=== PATIENT | male | born 1965 | race Caucasian/White ===

== ENCOUNTER → 2017-10-06 | Day surgery (SDC) | payer OTHER ==
[2017-09-26 09:37] LABS: BASOPHILS % 0.5 % (0.0-1.0); EOSINOPHILS # (AUTO) 0.3 (0.0-0.4); EOSINOPHILS % 3.8 % (0.0-6.0); HEMATOCRIT 40.7 % (38.2-49.6); LYMPHOCYTES % 25.7 % (18.0-39.1); MEAN CORPUSCULAR HEMOGLOBIN 30.9 pg (28-32); MEAN CORPUSCULAR HGB CONC 34.4 g/dL (31-35); MEAN CORPUSCULAR VOLUME 89.8 fL (81-99); MONOCYTES # (AUTO) 0.6 (0.2-0.8); MONOCYTES % 7.3 % (4.4-11.3); NEUTROPHILS # (AUTO) 4.8 (2.1-6.9); NEUTROPHILS % 62.2 % (38.7-80.0); PLATELET COUNT 286 x10e3/uL (140-360); RED BLOOD COUNT 4.53 x10e6/uL (4.3-5.7); RED CELL DISTRIBUTION WIDTH 13.1 % (11.7-14.4)
[2017-09-26 09:55] LABS: ALANINE AMINOTRANSFERASE 23 IU/L (0-55); ALKALINE PHOSPHATASE 85 IU/L (40-150); BLOOD UREA NITROGEN 22 mg/dL (7-26); BUN/CREATININE RATIO 22 (6-25); CALCIUM 9.7 mg/dL (8.4-10.2); CARBON DIOXIDE 28 mmol/L (22-29); CHLORIDE 104 mmol/L (98-107); EST GLOMERULAR FILTRATION RATE > 60 ML/MIN (60-); GLUCOSE 115 mg/dL (74-118); SODIUM 143 mmol/L (136-145)
[~2017-10-06] MED LIST: ACETAMINOPHEN 1000 MG/100 ML IV ONE; ACETAMINOPHEN/CODEINE 300MG - 30MG TAB ONE; BELLADONNA/OPIUM 60 MG SUPP PR ONE; BYSTOLIC10 MG PO; CEFTRIAXONE SOD 1 GM VIAL ONE; DEXAMETHASONE SOD PHOS INJ 4 MG/ML VIAL ONE; FENTANYL CITRATE/PF 100MCG/2 ML INJ ONE; GEMFIBROZIL600 MG PO; IOPAMIDOL 610MG/1ML 300 MG/ML VIAL IV ONE; LIDOCAINE HCL 2% LOCAL INJ 5 ML SDV VIAL INJ ONE; MIDAZOLAM HCL 2 MG/2 ML VIAL ONE; PROPOFOL IV EMULSION 10 MG/ML 20 ML VIAL ONE; ROCURONIUM BROMIDE 10 MG/ML 5ML VIAL ONE; SEVOFLURANE INHAL SOLN 250 ML PEN BTL ONE; TYLENOL WITH C1 EACH PO
--- NOTE | 2017-10-06 05:55 | Diagnostic Imaging Report ---
ABDOMEN-1VIEW (KUB) Clinical history: Preoperative Technique: AP view abdomen Comparison: None Findings: Abdomen: Nonobstructive bowel gas pattern. Bowel gas and stool partially obscures the right greater than left kidney. Other: Right double-J ureteral stent in expected position. No stones visualized on provided radiographs. Pelvic phleboliths. Impression: Right double-J ureteral stent in expected position. No stones seen. Signed by: Dr Melba Gilmore MD on 10/06/2017 5:52 AM
--- NOTE | 2017-11-24 07:49 | Operative Report ---
DATE OF PROCEDURE: October 06, 2017 PREOPERATIVE DIAGNOSES 1. History of right urolithiasis. 2. Indwelling ureteral stent. POSTOPERATIVE DIAGNOSES 1. History of right urolithiasis. 2. Indwelling ureteral stent. PROCEDURES PERFORMED 1. Cystourethroscopy with complicated removal of right indwelling ureteral stent (separate procedure performed for diagnosis of stent done with separate scope). 2. Right ureteroscopy (separate procedure performed to ensure the patient has does not have any residual urolithiasis). 3. Radiological services for supervision and interpretation of ureteroscopy. 4. Interpretation of retrograde ureteropyelography. 5. Supervision of fluoroscopy. No radiologist present. ANESTHESIA: General. COMPLICATIONS: None. CLINICAL SUMMARY: Munir Clements is a 52-year-old man who underwent ureteral stenting in part as management of his urolithiasis. He is brought to the operating room today in hopes of rendering him stent-free and stone-free. He is aware of the risks of bleeding, infection, injury to adjacent structures, need for additional procedures and elected to proceed. OPERATIVE PROCEDURE IN DETAIL: Informed consent was verified. Munir Clements was properly identified, taken to the operating room and placed on the cystoscopy table in the supine position. Anesthesia was uneventfully begun. The patient was then carefully and gently repositioned in the dorsal lithotomy position with all pressure points well padded. His genitalia were prepared and draped in the usual sterile fashion. The 22.5-Syriac cystourethroscope sheath with the visual obturator in place was atraumatically inserted in the patient's urethra. It was guided down the unremarkable urethra past a normal sphincteric region through the prostate bed, which was significant for early BPH, and into the patient's bladder where panendoscopy revealed no suspicious mucosal lesions, no tumors, no stones and no diverticula. A stent was noted to be emerging from the right ureteral orifice and was mildly encrusted. A guidewire was then placed alongside the stent and guided to the level of the patient's kidney. The stent was then grasped, completely removed and discarded. Semirigid ureteroscope was then placed alongside the guidewire and guided into the distal right ureter without any evidence of stones noted. Contrast was injected. The flexible ureteroscope was then brought up over the guidewire and guided to the level of the patient's kidney. Careful panendoscopy of the intrarenal collecting system revealed no tumors, no stones, no diverticula, and no suspicious lesions. We carefully re-examined the ureter as we exited, and it exhibited no residual stones. Interpretation of retrograde ureteropyelography: Contrast was instilled in a retrograde fashion on the right-hand side. There were no tumors, no stones and no diverticula. Mild fullness of the collecting system was identified. Unobstructed drainage was observed fluoroscopically. The patient's bladder was drained. The cystoscope was withdrawn. A belladonna and opium suppository was placed revealing a normal-size prostate at approximately 20 g in size. It was nonfluctuant, and there were no nodules. The patient was then uneventfully reversed from anesthesia and taken to the recovery room in stable condition. There were no complications to the procedure. The patient tolerated the procedure well. Explicit postoperative instructions were given. We will plan on performing metabolic stone workup including 24-hour urine test and following the patient up in the office on an indefinite basis. Job#: [id number] cc:MIRI SALAS DO
== END | disposition home or self-care (01) ==
LOC: OR 05:44
PROVIDERS: ATTEND Urology
DX: N20.0 Calculus of kidney (principal); Z46.6 Encounter for fitting and adjustment of urinary device; N13.30 Unspecified hydronephrosis; N40.0 Benign prostatic hyperplasia without lower urinary tract symptoms; E66.01 Morbid (severe) obesity due to excess calories; I10 Essential (primary) hypertension; Z01.810 Encounter for preprocedural cardiovascular examination; Z01.812 Encounter for preprocedural laboratory examination; Z68.35 Body mass index [BMI] 35.0-35.9, adult; Z96.0 Presence of urogenital implants; Z84.1 Family history of disorders of kidney and ureter
CPT/HCPCS: 36415; 52351; 74000; 74420; 80053; 83970; 84550; 85025; 93005; J0696; J1100; J2001; J2250; Q9967

== ENCOUNTER → 2023-03-20 | Day surgery (SDC) | payer OTHER ==
[2023-03-18 09:13] LABS: BASOPHILS # (AUTO) 0.1 (0.0-0.1); BASOPHILS % 0.4 % (0.0-1.0); EOSINOPHILS # (AUTO) 0.3 (0.0-0.4); EOSINOPHILS % 2.8 % (0.0-6.0); HEMATOCRIT 43.3 % (38.2-49.6); HEMOGLOBIN 14.6 g/dL (14.0-18.0); LYMPHOCYTES # (AUTO) 2.5 (1.0-3.2); MEAN CORPUSCULAR HEMOGLOBIN 30.3 pg (28-32); MEAN CORPUSCULAR HGB CONC 33.7 g/dL (31-35); MEAN CORPUSCULAR VOLUME 89.8 fL (81-99); MONOCYTES % 8.6 % (4.4-11.3); NEUTROPHILS # (AUTO) 7.4 (2.1-6.9); NEUTROPHILS % 65.1 % (38.7-80.0); PLATELET COUNT 263 x10e3/uL (140-360); RED BLOOD COUNT 4.82 x10e6/uL (4.3-5.7); RED CELL DISTRIBUTION WIDTH 13.7 % (11.7-14.4)
[2023-03-18 09:44] LABS: ANION GAP 14.2 mmol/L (8-16); CALCIUM 9.6 mg/dL (8.4-10.2); CREATININE, SERUM 1.37 mg/dL (0.72-1.25); POTASSIUM 4.2 mmol/L (3.5-5.1)
[~2023-03-20] MED LIST changes: -ACETAMINOPHEN 1000 MG/100 ML IV ONE; -ACETAMINOPHEN/CODEINE 300MG - 30MG TAB ONE; +ATORVASTATIN CA20 MG PO; -BELLADONNA/OPIUM 60 MG SUPP PR ONE; +BUPIVACAINE 0.5%/EPI 30 ML SDV INJ ONE; -CEFTRIAXONE SOD 1 GM VIAL ONE; +DEXAMETHASONE SOD PHOS INJ 4 MG/ML SDV ONE; -DEXAMETHASONE SOD PHOS INJ 4 MG/ML VIAL ONE; +EPHEDRINE SULFATE INJ 50 MG/ML VIAL ONE; +GLYCOPYRROLATE INJ 0.2 MG/ML VIAL ONE; +HYDROCODONE/APAP 7.5MG-325MG 1 EA TAB ONE; +HYDROCODONE/APAP 7.5MG-325MG 1 EA TAB PO ONE; -IOPAMIDOL 610MG/1ML 300 MG/ML VIAL IV ONE; +KETOROLAC TROMETHAMINE 30 MG/ML VIAL ONE; +LACTATED RINGER'S 1,000 ML ONE; +LOSARTAN POTASS25 MG PO; -MIDAZOLAM HCL 2 MG/2 ML VIAL ONE; +NEOSTIGMINE 1 MG/ML 10ML VIAL ONE; +ONDANSETRON HCL INJ 2MG/ML 2ML 2 MG/ML VIAL ONE; +POVIDONE IODINE 0.05% 0.05 % ML PO ONE; +ROCURONIUM BROMIDE 10 MG/ML 5ML VIAL IV ONE; -ROCURONIUM BROMIDE 10 MG/ML 5ML VIAL ONE; +SUCCINYLCHOLINE CHLORIDE 20 MG/ML 10ML VIAL ONE; +ZOLPIDEM; +ZOLPIDEM TARTRAT5 MG PO
[2023-03-20 12:27] VITALS: BP 113/69; PULSE 66; RESP 18; O2SAT 97
== END | disposition home or self-care (01) ==
LOC: OR 07:25
PROVIDERS: ATTEND Surgery
DX: K43.6 Other and unspecified ventral hernia with obstruction, without gangrene (principal); G47.33 Obstructive sleep apnea (adult) (pediatric); D64.9 Anemia, unspecified; I10 Essential (primary) hypertension; E78.5 Hyperlipidemia, unspecified; R05.9 Cough, unspecified; K21.9 Gastro-esophageal reflux disease without esophagitis; E66.9 Obesity, unspecified; Z01.810 Encounter for preprocedural cardiovascular examination; Z01.812 Encounter for preprocedural laboratory examination; Z79.899 Other long term (current) drug therapy; Z96.0 Presence of urogenital implants; Z20.822 Contact with and (suspected) exposure to COVID-19
CPT/HCPCS: 0223U; 36415; 49594; 80048; 85025; 88302; 93005; C1781; J0330; J0690; J1100; J1885; J2001; J2405; J2704; J2710; J3010; J7121; 88304